=== PATIENT | female | born 1995 | race Two or more races ===

== ENCOUNTER 2025-01-29 11:47 | Outpatient (AMBR) | payer MEDICAID, SELFPAY ==
--- NOTE | 2025-01-29 14:54 | LACNOTE_ITS ---
Assessment Alternative Milk Expression Alternative Milk Expression Alternative Method Used: Yes Method Used: Pumping Alternative Method Comment: mom states she just started to use [employer] electric pump Alternative Method Used Reason: Poor Feeding Alternative Method Produced Milk / Colostrum: Yes Production Amount: 2 Production ounces or mls: ounces Pump Used: Electric Pumping Frequency Per Day: 2 Pumping Frequency Comment: encouraged mom to pump after feeds, or to pump in between sleep cycles in order to stock pile and/or for stimulation. as she feels her milk supply has gone down. LAC Assessment Breast Feeding Assessment Date of : 01/[birth year]25 Current Age of baby: 3 (weeks) Weight: 3225.042 g Current weight of baby: 3265.865 g Stool Size: Medium Color of Stools: yellow and watery Breast Feeding Ability: Fair [place] Complications Comment: mom states that some feeds go very well and other times she feels pain and baby does not have a good feed [place] Activity Level: Awake / Alert and Rooting Muscle Tone: Tense Suck Quality: Areolar Compression and Rhythmic Effective [place] Suck: Yes Swallow: Audible and Observed Jaw: With In Norml Limits Lip Seal: Good and Tight Lips Feeding Posistion: Football Additional Latch or Posistion Assistance Needed: Minimal Breast Feeding Comment: baby does well at the breast for a few minutes but then reverts to pulling at the breast and reattaching with a shallow latch. also top lip does not flange. Pre Weight (before feeding): 3430.292 g Post Weight (post feeding): 3458.642 g % gained or lost: 1% Gain LAC Intervention Interventions Tools: Nipple Shield Other Tools: when I saw mom and baby in the hospital at day 6 post , baby had jaundice and we started mom pumping and using an SNS feeder to help supplent baby. mom would like to go back to exclusively using breast milk. Nipple Shield Size: Medium Techniques Discussed: Latch, Position and Pumping Discharge Follow Up Appointment Date and Time: February 06, 2024 at 0930 Other Referral Made: Yes Feeding Preference at Discharge: Breast Milk and Formula LAC Latch Score LATCH Score Latch: Grasps Breast, Rythmic Suck Audible Swallow: Few, With Stimulation Nipple Type: Everted After Stimulation Comfort: Soft, Nontender Hold: Minimal Assistance Needed Total Score: 8 LAC Oral Assessment Oral Assessment Prenulum Level: Posterior Lip: Tight Upper Lip Palate: High Dental Referral made: Yes Oral Assessment Comment: gave parents resource list to find a dentist that works with their insurance OP DC Assessment Discharge Follow Up Appointment Date and Time: February 06, 2024 at 0930 Other Referral Made: Yes Visit Complete?: Yes
== END 2025-02-05 23:59 | disposition home or self-care (01) ==
LOC: HODLAC 11:47
DX: Z39.1 Encounter for care and examination of lactating mother (principal)